=== PATIENT | male | born 1995 | race Caucasian/White ===

== ENCOUNTER 2023-05-01 16:00 | Outpatient (CLI) | payer OTHER, SELFPAY ==
--- NOTE | ~2023-05-01 | US_ITS ---
EXAMINATION: US renal BI DATE: 05/01/2023 16:24 INDICATION: Abnormal result of kidney function studies TECHNIQUE: Multiple ultrasound grayscale images of the kidneys were obtained. COMPARISON: None. FINDINGS: The right kidney measures 11.2 x 4.6 x 4.1 cm. The left kidney measures 12.1 x 4.6 x 7.0 cm. The kidn eys demonstrate normal echogenicity. There is no hydronephrosis in either kidney. No stones identifi ed. The bladder is normal with bilateral ureteral jets. IMPRESSION: 1. Normal kidneys without hydronephrosis. Reviewed, dictated and finalized at location A. FORMING MACHINE OPERATOR
--- NOTE | ~2023-05-01 | XR_ITS ---
EXAMINATION: XR abdomen/kub 1V DATE: 05/01/2023 16:24 INDICATION: Abnormal results of kidney function studies TECHNIQUE: A supine view of the abdomen on 2 radiographs was obtained. COMPARISON: None. FINDINGS: 3 mm stone projecting over the lower pole of the right kidney. No stones seen at the left kidney or a long the course of the bilateral ureters. Small amount of gas and stool scattered throughout the colo n. No dilated loops of bowel to suggest obstruction. IMPRESSION: 1. 3 mm stone at the lower pole of the right kidney. Reviewed, dictated and finalized at location A. [employer]OR OF [employer]WIF[employer]/STAFF MIDWIFE
== END 2023-05-01 16:01 ==
LOC: GOSHIMG 16:01
PROVIDERS: PCP Internal Medicine Nephrology; Visit Provider Internal Medicine Nephrology
DX: R94.4 Abnormal results of kidney function studies (principal); N20.0 Calculus of kidney
CPT/HCPCS: 74018; 76775